=== PATIENT | female | born 1985 | race Caucasian/White ===

== ENCOUNTER 2018-06-20 09:45 | Emergency (ER) | payer OTHER ==
[~2018-06-20] VITALS: Ht 162.6 cm; Wt 53.1 kg
[2018-06-20] MEDS ORDERED: PRENATAL 19 TA1 EACH (10:12)
== END 2018-06-20 13:21 | disposition home or self-care (01) ==
LOC: ER 09:45
DX: O20.0 Threatened abortion (principal)

== ENCOUNTER → 2018-11-19 15:42 | Outpatient (CLI) | payer OTHER ==
[~2018-11-19 15:42] MED LIST: DHA100 MG PO; PRENATAL 19 TA1 EACH; ZANTAC150 M3
== END | disposition home or self-care (01) ==
LOC: LAB 15:42
DX: Z03.79 Encounter for other suspected maternal and fetal conditions ruled out (principal)

== ENCOUNTER 2018-11-20 19:13 | Outpatient (CLI) | payer OTHER ==
[~2018-11-20 19:13] MED LIST changes: -DHA100 MG PO; -ZANTAC150 M3
[2018-11-20] MEDS ORDERED: ZANTAC150 M3 (19:34)
[2018-11-20] MEDS ORDERED: DHA100 MG PO (19:34)
== END 2018-11-21 11:31 | disposition home or self-care (01) ==
LOC: OBS/DEL 19:13
DX: O60.03 Preterm labor without delivery, third trimester (principal); Z34.03 Encounter for supervision of normal first pregnancy, third trimester

== ENCOUNTER 2019-01-22 10:33 | Inpatient (IN) | payer OTHER ==
[~2019-01-22] VITALS: Ht 162.6 cm; Wt 63.0 kg
[~2019-01-22 10:33] MED LIST changes: +DHA100 MG PO; +ZANTAC150 M3
[2019-01-25] MEDS ORDERED: SURFAK240 M1 PO (09:35)
[2019-01-25] MEDS ORDERED: IBUPROFEN800 MG PO (09:35)
== END 2019-01-25 14:37 | disposition home or self-care (01) | DRG 787 ==
LOC: LDR 10:33 → OB/GYN 10:33
PROVIDERS: ADMIT Obstetrics & Gynecology
PROC: 4A1HXCZ Monitoring of Products of Conception, Cardiac Rate, External Approach (ICD-10-PCS; 2019-01-22)
PROC: 10D00Z1 Extraction of Products of Conception, Low, Open Approach (ICD-10-PCS; principal; 2019-01-22 11:00)
DX: O82 Encounter for cesarean delivery without indication (principal); O41.03X0 Oligohydramnios, third trimester, not applicable or unspecified; O64.1XX0 Obstructed labor due to breech presentation, not applicable or unspecified; Z3A.38 38 weeks gestation of pregnancy; Z37.0 Single live birth